=== PATIENT | male | born 1945 | race Caucasian/White ===

== ENCOUNTER 2023-03-03 17:01 | Emergency (ER) | payer OTHER ==
[~2023-03-03] VITALS: Ht 188 cm; Wt 96.6 kg
[2023-03-03 21:12] LABS: Source, Urine Clean Catch
[2023-03-03 21:17] LABS: Appearance, Urine Cloudy (Clear); Bilirubin, Urine Neg (Neg); Blood, Urine 5+ (Neg); Color, Urine Yellow (P-Yellow); Glucose Qualitative, Urine Neg (Neg); Ketones, Urine Neg (Neg); Leukocyte Esterase, Urine 3+ (Neg); Nitrite, Urine Neg (Neg); Protein, Urine 3+ (Neg); Specific Gravity, Urine 1.015 (1.003-1.022); Urobilinogen, Urine NORM (Normal)
[2023-03-03 21:41] LABS: Bacteria Many /hpf; Red Blood Cells, Urine TNTC /hpf (0-2); Squamous Epithelial Cells Few /hpf (Few); White Blood Cells, Urine 50-100 /hpf (0-5)
[2023-03-03] MEDS ORDERED: CEPH500 PO (21:51)
[2023-03-04] MEDS ORDERED: Macrobid 100 M100 MG PO (14:37)
== END 2023-03-03 22:19 | disposition home or self-care (01) ==
LOC: ER 17:01
PROVIDERS: Physician Assistant
DX: T83.091A Other mechanical complication of indwelling urethral catheter, initial encounter (principal); N39.0 Urinary tract infection, site not specified; R33.9 Retention of urine, unspecified; Y84.8 Other medical procedures as the cause of abnormal reaction of the patient, or of later complication, without mention of misadventure at the time of the procedure
CPT/HCPCS: 81001; 87077; 87086; 87186; 99283; A9270

== ENCOUNTER → 2024-02-28 | Outpatient (CLI) | payer OTHER ==
[~2024-02-28] MED LIST: AMOCLA875 PO; CEPH500 PO; Macrobid 100 M100 MG PO
[2024-02-28 15:35] LABS: Creatinine Urine 91.5 mg/dL (27.00-270.00); Protein, Urine Quantitative 16.5 mg/dL (0.0-11.9)
[2024-02-28 15:38] LABS: Microalbumin, Urine Quant. 46.4 mg/L (0.000-20.000)
== END ==
LOC: LAB 08:37 → LAB SHORT 08:37 → LAB FUT 02-22 14:20
PROVIDERS: Internal Medicine Nephrology
DX: N18.30 Chronic kidney disease, stage 3 unspecified (principal); D63.1 Anemia in chronic kidney disease; N25.81 Secondary hyperparathyroidism of renal origin; E55.9 Vitamin D deficiency, unspecified; E29.1 Testicular hypofunction; R94.6 Abnormal results of thyroid function studies; R76.9 Abnormal immunological finding in serum, unspecified; R94.5 Abnormal results of liver function studies; D51.8 Other vitamin B12 deficiency anemias; D52.8 Other folate deficiency anemias; D50.9 Iron deficiency anemia, unspecified
CPT/HCPCS: 81050; 82043; 82570; 84156

== ENCOUNTER 2024-12-16 21:15 | Inpatient (IN) | payer OTHER ==
[~2024-12-16] VITALS: Ht 188 cm; Wt 101.4 kg
[2024-12-16 22:55] LABS: Hematocrit 41.1 % (37.0-53.0); Hemoglobin 13.6 g/dL (13.5-17.5); Mean Corpuscular HGB 28.9 pg (26.0-34.0); Mean Corpuscular HGB Conc 33.1 g/dL (31.5-36.5); Mean Corpuscular Volume 87 fL (80-100); Mean Platelet Volume 11.3 fL (9.1-12.4); Platelet Count 149 K/mm3 (150-400); RDW Coefficient Variation 14.8 % (11.7-14.2); RDW Standard Deviation 47.8 fL (35.1-46.3)
[2024-12-16 22:57] LABS: White Blood Cell Count 91.15 K/mm3 (4.00-11.30)
[2024-12-16 23:17] LABS: BAND PERCENT MAN 2 % (0-8); BASOPHILS PERCENT MAN 0 % (0-2); EOSINOPHILS PERCENT MAN 0 % (0-6); LYMPHOCYTES % ATYPICAL MANUAL 2 % (0-0); LYMPHOCYTES ABSOLUTE MAN 73.83 K/mm3 (0.84-5.20); LYMPHOCYTES PERCENT MAN 79 % (21-46); MONOCYTES ABSOLUTE MAN 3.64 K/mm3 (0.16-1.47); MONOCYTES PERCENT MAN 4 % (4-13); NEUTROPHILS ABSOLUTE MAN 13.67 K/mm3 (1.96-9.15); SEG NEUTROPHILS PERCENT MAN 13 % (41-73); TOTAL CELLS COUNTED 100
[2024-12-16 23:27] LABS: Albumin/Globulin Ratio 0.7 (0.8-1.8); Bilirubin, Total 1.1 mg/dL (0.1-1.0); Bun/Creatinine Ratio 17.5 (12.0-20.0); Calcium, Blood 9.7 mg/dL (8.5-10.1); Creatinine, Blood 1.71 mg/dL (0.60-1.20); Globulin, Blood 4.1 g/dL (2.2-4.0); Potassium, Blood 4.6 mmol/L (3.5-5.5); Total Protein, Blood 7.1 g/dL (6.4-8.2)
[2024-12-17] MEDS ORDERED: NS 1,000 ML IV SCH ×3 (00:55→07:15)
[2024-12-17 02:29] LABS: Influenza A, PCR NEGATIVE (NEGATIVE); Influenza B, PCR NEGATIVE (NEGATIVE); Resp Syncytial Virus, PCR NEGATIVE (NEGATIVE); SARS-Cov-2 (COVID-19) PCR, MMC NEGATIVE (NEGATIVE)
[2024-12-17] MEDS ORDERED: Acetaminophen 325 MG TABLET PO PRN (03:40)
[2024-12-17] MEDS ORDERED: FLU VACC TS2024-25(6MOS UP)/PF 45 MCG/0.5 ML SYRINGE IM ONE (03:40)
[2024-12-17 07:12] LABS: Magnesium, Blood 2.3 mg/dL (1.6-2.4)
[2024-12-17 07:22] LABS: Albumin, Blood 2.6 g/dL (3.4-5.0); Albumin/Globulin Ratio 0.6 (0.8-1.8); Bilirubin, Total 0.9 mg/dL (0.1-1.0); Creatinine, Blood 1.43 mg/dL (0.60-1.20); Potassium, Blood 4.6 mmol/L (3.5-5.5); Total Protein, Blood 6.6 g/dL (6.4-8.2)
[2024-12-17 07:23] LABS: Calcium, Blood 7.7 mg/dL (8.5-10.1)
[2024-12-17 07:33] LABS: Source, Urine Foley catheter
[2024-12-17 07:42] LABS: Bilirubin, Urine Neg (Neg); Blood, Urine 5+ (Neg); Glucose Qualitative, Urine Neg (Neg); Ketones, Urine Neg (Neg); Leukocyte Esterase, Urine 3+ (Neg); Nitrite, Urine Pos (Neg); Protein, Urine 3+ (Neg); Urobilinogen, Urine NORM (Normal)
[2024-12-17] MEDS ORDERED: Enoxaparin 40 MG/0.4 ML SYR SC SCH (09:00)
[2024-12-17 09:12] LABS: Appearance, Urine Hazy (Clear); Bacteria Mod /hpf; Color, Urine Yellow (P-Yellow); Red Blood Cells, Urine 25-50 /hpf (0-2); Squamous Epithelial Cells Rare /hpf (Few); White Blood Cells, Urine 25-50 /hpf (0-5)
[2024-12-17] MEDS ORDERED: BIOTENE SALIVA STIMULANT 44.3 ML BOTTLE MM ONE (10:20)
[2024-12-17 11:10] LABS: Hematocrit 37.3 % (37.0-53.0); Hemoglobin 12.4 g/dL (13.5-17.5); Mean Corpuscular HGB 29.5 pg (26.0-34.0); Mean Corpuscular HGB Conc 33.2 g/dL (31.5-36.5); Mean Corpuscular Volume 89 fL (80-100); Mean Platelet Volume 11.2 fL (9.1-12.4); Platelet Count 131 K/mm3 (150-400); RDW Coefficient Variation 14.9 % (11.7-14.2); RDW Standard Deviation 48.1 fL (35.1-46.3); Red Blood Cell Count 4.21 M/mm3 (4.30-5.90)
[2024-12-17 11:16] LABS: White Blood Cell Count 83.71 K/mm3 (4.00-11.30)
[2024-12-17 12:44] LABS: BASOPHILS PERCENT MAN 0 % (0-2); EOSINOPHILS PERCENT MAN 0 % (0-6); LYMPHOCYTES % ATYPICAL MANUAL 10 % (0-0); LYMPHOCYTES ABSOLUTE MAN 72.82 K/mm3 (0.84-5.20); LYMPHOCYTES PERCENT MAN 77 % (21-46); MONOCYTES ABSOLUTE MAN 0.83 K/mm3 (0.16-1.47); MONOCYTES PERCENT MAN 1 % (4-13); NEUTROPHILS ABSOLUTE MAN 10.04 K/mm3 (1.96-9.15); SEG NEUTROPHILS PERCENT MAN 12 % (41-73); TOTAL CELLS COUNTED 100
[2024-12-17 14:27] VITALS: BP 127/78
--- NOTE | 2024-12-17 17:27 | NUR ---
PT ARRIVED TO ROOM AT 1410 AOX4 VERY TIRED. PT COMPLAINS OF SWEATY EPISODES AND FEELS COLD WAS NOT CURRENTLY SWEATY. WARM BLANKETS PROVIDED AND PT WAS ORIENTED TO ROOM. PT HAD BEEN A STANDBY FROM [facility] TO THE BED. SAQIB BEEBE IS PATIENT. PT TREATED FOR CHRONIC SPINAL AND BODY PAIN STATING HIS L SIDE HURTS THE WORST. CALL LIGHT IS WITHIN REACH WILL CONTINUE TO MONITOR.
[2024-12-17 20:40] VITALS: BP 106/66
--- NOTE | 2024-12-17 23:36 | NUR ---
2129 PT LYING IN BED, REPORTS A LITTLE NAUSE THAT HE DOES NOT WANT MEDS FOR AT THIS TIME, PT ENCOURAGED TO CALL IF THAT CHANGES. PT REPORTS N/T ON L SIDE OF BODY THAT IS NOT NEW. CHRONIC BEEBE IN PLACE WITH CLOUDY YELLOW URINE. EDEMA IN LE'S WITH 1+ PITTING. NO OTHER APPARENT SIGNS OF DISTRESS. CALL LIGHT IS IN REACH.
--- NOTE | 2024-12-18 01:15 | NUR ---
0000 PT LYING IN BED, EYES CLOSED, APPEARS TO BE RESTING. BREATHING IS EVEN, UNLABORED. NO APPARENT SIGNS OF DISTRESS. CALL LIGHT IS IN REACH.
[2024-12-18] MEDS ORDERED: TOLT4 PO (01:26)
[2024-12-18] MEDS ORDERED: VITAMIN D5000 UNIT PO (01:26)
[2024-12-18] MEDS ORDERED: POTA8 PO (01:27)
[2024-12-18] MEDS ORDERED: FURO40 PO (01:27)
[2024-12-18] MEDS ORDERED: FINA5 PO (01:27)
[2024-12-18] MEDS ORDERED: LOSA25 PO (01:27)
[2024-12-18] MEDS ORDERED: CREON DR 36,001 EACH PO (01:31)
--- NOTE | 2024-12-18 01:46 | NUR ---
PT IS LYING IN BED, EYES CLOSED, APPEARS TO BE RESTING. BREATHING IS EVEN, UNLABORED. NO APPARENT SIGNS OF DISTRESS. CALL LIGHT IS IN REACH.
[2024-12-18 03:22] VITALS: BP 104/68
--- NOTE | 2024-12-18 04:39 | NUR ---
PT LYING IN BED, EYES CLOSED, APPEARS TO BE RESTING. BREATHING IS EVEN, UNLABORED. NO APPARENT SIGNS OF DISTRESS. CALL LIGHT IS IN REACH.
--- NOTE | 2024-12-18 04:40 | NUR ---
PT IS AAO X 4, ON RA. REPORTS N/T ON L SIDE OF BODY, NOT NEW. REPORTED A LITTLE NAUSEA AT HS, DID NOT WANT MEDS AT THAT TIME, WAS ENCOURAGED TO CALL IF THAT CHANGED, NO REPORTS OF NAUSEA INREASING. EDEMA IN LE'S, REDDENED SPOT ON INSIDE OF R FOOT BY BASE OF GREAT TOE.
--- NOTE | 2024-12-18 05:58 | NUR ---
PT LYING IN BED, EYES CLOSED, APPEARS TO BE RESTING. BREATHING IS EVEN, UNLABORED. NO APPARENT SIGNS OF DISTRESS. CALL LIGHT IS IN REACH. NO OTHER CHANGES THIS SHIFT.
[2024-12-18 07:05] LABS: EOSINOPHILS ABSOLUTE AUTO 0.04 K/mm3 (0.00-0.68); EOSINOPHILS PERCENT AUTO 0 % (0-6); Hematocrit 34.6 % (37.0-53.0); Hemoglobin 11.4 g/dL (13.5-17.5); Mean Corpuscular HGB 29.3 pg (26.0-34.0); Mean Corpuscular HGB Conc 32.9 g/dL (31.5-36.5); Mean Corpuscular Volume 89 fL (80-100); Mean Platelet Volume 11.4 fL (9.1-12.4); Platelet Count 147 K/mm3 (150-400); RDW Coefficient Variation 14.9 % (11.7-14.2); RDW Standard Deviation 47.7 fL (35.1-46.3); Red Blood Cell Count 3.89 M/mm3 (4.30-5.90)
[2024-12-18 07:19] LABS: BASOPHILS ABSOLUTE AUTO 0.07 K/mm3 (0.00-0.23); BASOPHILS PERCENT AUTO 0 % (0-2); IMMATURE GRAN ABSOLUTE AUTO 0.38 K/mm3 (0.00-0.10); IMMATURE GRAN PERCENT AUTO 1 % (0-1); LYMPHOCYTES ABSOLUTE AUTO 58.23 K/mm3 (0.84-5.20); LYMPHOCYTES PERCENT AUTO 75 % (21-46); MONOCYTES ABSOLUTE AUTO 7.02 K/mm3 (0.16-1.47); MONOCYTES PERCENT AUTO 9 % (4-13); NEUTROPHILS ABSOLUTE AUTO 12.36 K/mm3 (1.96-9.15); NEUTROPHILS PERCENT AUTO 16 % (41-73)
[2024-12-18 07:23] LABS: Albumin, Blood 2.3 g/dL (3.4-5.0); Albumin/Globulin Ratio 0.6 (0.8-1.8); Bilirubin, Total 0.7 mg/dL (0.1-1.0); Bun/Creatinine Ratio 17.1 (12.0-20.0); Creatinine, Blood 1.46 mg/dL (0.60-1.20); Globulin, Blood 3.6 g/dL (2.2-4.0); Magnesium, Blood 2.5 mg/dL (1.6-2.4); Phosphorus, Blood 2.7 mg/dL (2.5-4.9); Potassium, Blood 3.9 mmol/L (3.5-5.5); Thyroid Stimulating Hormone 1.29 uIU/mL (0.360-4.800); Total Protein, Blood 5.9 g/dL (6.4-8.2); Uric Acid, Blood 5.6 mg/dL (3.5-7.2)
[2024-12-18 07:35] VITALS: BP 129/72
[2024-12-18] MEDS ORDERED: NS 1,000 ML IV SCH (10:35)
--- NOTE | 2024-12-18 13:16 | NUR ---
PT DISCHARGED 1300. AOX4 AND COOPERATIVE OF CARE. PT STANDBY ASSIST NO DISTRESS NOTED. DISCHARGE PAPERWORK REVIEWED AND EDUCATIONAL MATERIAL SENT WITH PT. PT ESCORTED OUT VIA WHEELCHAIR WITH TO TRANSFER.
== END 2024-12-18 13:00 | disposition home or self-care (01) | DRG 683 ==
LOC: ER 21:15 → MEDS 12-17 03:36 → ERHOLD 12-17 03:36 → MEDS 12-17 14:17
PROVIDERS: Emergency Medicine; Internal Medicine; Student in an Organized Health Care Education/Training Program; ADMIT Student in an Organized Health Care Education/Training Program
DX: N17.9 Acute kidney failure, unspecified (principal); D47.9 Neoplasm of uncertain behavior of lymphoid, hematopoietic and related tissue, unspecified; E87.1 Hypo-osmolality and hyponatremia; D63.1 Anemia in chronic kidney disease; Z66 Do not resuscitate; N25.81 Secondary hyperparathyroidism of renal origin; N18.30 Chronic kidney disease, stage 3 unspecified; E55.9 Vitamin D deficiency, unspecified; E88.09 Other disorders of plasma-protein metabolism, not elsewhere classified; Z79.899 Other long term (current) drug therapy; Z92.21 Personal history of antineoplastic chemotherapy; Z88.1 Allergy status to other antibiotic agents; Z88.8 Allergy status to other drugs, medicaments and biological substances
CPT/HCPCS: 0241U; 36415; 51702; 70450; 71045; 76770; 80053; 81001; 82533; 82570; 83735; 84100; 84300; 84443; 84550; 85025; 87077; 87086; 87186; 96360-59; 99285-25; A9270; J1650; J7030

== ENCOUNTER → 2025-01-24 | Outpatient (CLI) | payer OTHER ==
[~2025-01-24] MED LIST changes: +CREON DR 36,001 EACH PO; +FINA5 PO; +FURO40 PO; +LOSA25 PO; +POTA8 PO; +TOLT4 PO; +VITAMIN D5000 UNIT PO
== END ==
LOC: LAB SHORT 16:26 → LAB 16:26
DX: N39.0 Urinary tract infection, site not specified (principal)
CPT/HCPCS: 87077; 87086; 87186